=== PATIENT | male | born 1955 | race Caucasian/White ===

== ENCOUNTER → 2016-08-15 | Outpatient (CLI) | payer OTHER ==
[~2016-08-15] MED LIST: BENA20TA2 PO; CHOL2000 PO; DOCU-30 PO; DOXY-168 PO; Enoxaparin Sodium SQ; FURO20TA3 PO; GABA300C10 PO; HYDR-3240 PO; INSULIN; LIDOCAINE 1%, 20ML ONE; OMEP-110 PO; OXYC10TA32 PO; OXYC10TA6 PO; OXYC5TAB3 PO; SODIUM BICARBONATE 4.2%, 5ML ONE; WARF7.5T PO-COUM
== END | disposition home or self-care (01) ==
LOC: RAD 12:50
PROVIDERS: ATTEND Specialist
DX: C20 Malignant neoplasm of rectum (principal); K31.89 Other diseases of stomach and duodenum; K59.09 Other constipation; R18.8 Other ascites
CPT/HCPCS: 49083; 74000; J3490

== ENCOUNTER 2016-09-12 21:40 | Emergency (ER) | payer OTHER ==
[~2016-09-12] VITALS: Ht 177.8 cm; Wt 91.6 kg
[~2016-09-12 21:40] MED LIST changes: -GRAN1PAT TD; -LIDOCAINE 1%, 20ML ONE; -LORA1TAB PO; -MAGN400T36 PO; -MORP30TA81 PO; -ONDA8TAB12 PO; -PROC10TA PO; -SODIUM BICARBONATE 4.2%, 5ML ONE; -ZOLP10TA PO
[2016-09-12] MEDS ORDERED: FURO20TA3 PO ×2 (22:03)
[2016-09-12] MEDS ORDERED: MORP30TA81 PO (22:03)
[2016-09-12] MEDS ORDERED: MAGN400T36 PO (22:03)
[2016-09-12] MEDS ORDERED: ONDA8TAB12 PO (22:03)
[2016-09-12] MEDS ORDERED: LORA1TAB PO (22:03)
[2016-09-12] MEDS ORDERED: PROC10TA PO (22:03)
[2016-09-12] MEDS ORDERED: ZOLP10TA PO (22:03)
[2016-09-12] MEDS ORDERED: GRAN1PAT TD (22:04)
[2016-09-13 00:15] VITALS: BP 111/81
== END 2016-09-13 00:17 | disposition home or self-care (01) ==
LOC: ED 22:40
DX: N40.1 Benign prostatic hyperplasia with lower urinary tract symptoms (principal); R33.8 Other retention of urine; R30.0 Dysuria; K21.9 Gastro-esophageal reflux disease without esophagitis; E11.9 Type 2 diabetes mellitus without complications; I10 Essential (primary) hypertension; Z90.49 Acquired absence of other specified parts of digestive tract; Z87.891 Personal history of nicotine dependence; Z85.9 Personal history of malignant neoplasm, unspecified
CPT/HCPCS: 51702; 81003

== ENCOUNTER → 2016-09-12 | Outpatient (CLI) | payer OTHER ==
[~2016-09-12] MED LIST changes: +GRAN1PAT TD; +LORA1TAB PO; +MAGN400T36 PO; +MORP30TA81 PO; +ONDA8TAB12 PO; +PROC10TA PO; +ZOLP10TA PO
== END | disposition home or self-care (01) ==
LOC: RAD 12:27
PROVIDERS: ATTEND Specialist
DX: C20 Malignant neoplasm of rectum (principal); R18.8 Other ascites
CPT/HCPCS: 49083; J3490

== ENCOUNTER 2016-09-18 14:00 | Emergency (ER) | payer OTHER ==
[~2016-09-18] VITALS: Ht 175.3 cm; Wt 94.8 kg
[~2016-09-18 14:00] MED LIST changes: +GRAN1PAT TD; +LORA1TAB PO; +MAGN400T36 PO; +MORP30TA81 PO; +ONDA8TAB12 PO; +PROC10TA PO; +ZOLP10TA PO
[2016-09-18 15:26] LABS: ASPARTATE AMINO TRANSFERASE 50 U/L (15-37); BLOOD UREA NITROGEN 11 mg/dL (7-18)
[2016-09-18 16:40] VITALS: BP 106/67
== END 2016-09-18 17:15 | disposition home or self-care (01) ==
LOC: ED 16:59
DX: C79.9 Secondary malignant neoplasm of unspecified site (principal); R18.0 Malignant ascites; Z92.21 Personal history of antineoplastic chemotherapy; R33.9 Retention of urine, unspecified
CPT/HCPCS: 36415; 49083; 80053; 85025

== ENCOUNTER 2016-09-24 19:43 | Emergency (ER) | payer OTHER ==
[~2016-09-24] VITALS: Ht 175.3 cm; Wt 97.7 kg
[2016-09-24] MEDS ORDERED: LIDOCAINE 1%-EPI 1:100K, 50ML ONE (21:58)
[2016-09-24] MEDS ORDERED: LIDOCAINE 1%-EPI 1:100K, 20ML INFIL ONE (22:00)
[2016-09-24 22:22] VITALS: BP 113/78
== END 2016-09-24 23:08 | disposition home or self-care (01) ==
LOC: ED 22:10
DX: C80.1 Malignant (primary) neoplasm, unspecified (principal); R18.0 Malignant ascites; K21.9 Gastro-esophageal reflux disease without esophagitis; E11.42 Type 2 diabetes mellitus with diabetic polyneuropathy; I10 Essential (primary) hypertension
CPT/HCPCS: 99283

== ENCOUNTER → 2016-09-29 | Outpatient (CLI) | payer OTHER ==
[~2016-09-29] MED LIST changes: +LIDOCAINE 1%, 20ML ONE; +SODIUM BICARBONATE 4.2%, 5ML ONE
== END | disposition home or self-care (01) ==
LOC: RAD 09:09
PROVIDERS: ATTEND Specialist
DX: R18.8 Other ascites (principal); R14.0 Abdominal distension (gaseous); C20 Malignant neoplasm of rectum
CPT/HCPCS: 49083; J3490

== ENCOUNTER → 2016-10-10 | Outpatient (CLI) | payer OTHER | END | disposition home or self-care (01) | LOC: RAD 09:27 | PROVIDERS: ATTEND Specialist | DX: R18.8 Other ascites (principal); C20 Malignant neoplasm of rectum | CPT/HCPCS: 49083; J3490 ==

== ENCOUNTER → 2016-10-14 | Outpatient (CLI) | payer OTHER ==
[~2016-10-14] MED LIST changes: -LIDOCAINE 1%, 20ML ONE; +LIDOCAINE 2%, 20ML ONE
== END | disposition home or self-care (01) ==
LOC: RAD 09:11
PROVIDERS: ATTEND Specialist
DX: C20 Malignant neoplasm of rectum (principal); R18.8 Other ascites
CPT/HCPCS: 49083; J3490

== ENCOUNTER → 2016-10-28 | Outpatient (CLI) | payer OTHER ==
[~2016-10-28] MED LIST changes: +LIDOCAINE 1%, 20ML ONE; -LIDOCAINE 2%, 20ML ONE
== END | disposition home or self-care (01) ==
LOC: RAD 08:31
PROVIDERS: ATTEND Specialist
DX: R18.0 Malignant ascites (principal); C20 Malignant neoplasm of rectum
CPT/HCPCS: 49083; J3490

== ENCOUNTER 2016-11-01 11:45 | Day surgery (SDC) | payer OTHER ==
[~2016-11-01] VITALS: Ht 176.5 cm; Wt 92.0 kg
[~2016-11-01 11:45] MED LIST changes: -LIDOCAINE 1%, 20ML ONE; -SODIUM BICARBONATE 4.2%, 5ML ONE
[2016-11-01 12:21] VITALS: BP 114/95
[2016-11-01] MEDS ORDERED: SODIUM CHLORIDE 0.9% 1,000 ML IV SCH (12:24)
[2016-11-01] MEDS ORDERED: CEFAZOLIN PMX 1GM/50ML 50 ML IV ONE (13:00)
[2016-11-01] MEDS ORDERED: MIDAZOLAM 1 MG/ML, 5ML ONE (13:49)
[2016-11-01] MEDS ORDERED: FENTANYL PF 100 MCG/2ML ONE (13:50)
[2016-11-01] MEDS ORDERED: NALOXONE 1 MG/ML, 2ML ONE (13:50)
[2016-11-01] MEDS ORDERED: FLUMAZENIL 0.1 MG/1 ML, 5ML ONE (13:50)
== END 2016-11-01 16:20 | disposition home or self-care (01) ==
LOC: OUT 11:45
PROVIDERS: ATTEND Specialist
DX: C20 Malignant neoplasm of rectum (principal); I10 Essential (primary) hypertension; E78.5 Hyperlipidemia, unspecified; Z98.890 Other specified postprocedural states
CPT/HCPCS: 36415; 49418; 85610; 99156; 99157; C1729; J0690; J2250; J3010; J7030; J2310